=== PATIENT | male | born 1960 | race Caucasian/White ===

== ENCOUNTER 2017-10-23 01:02 | Emergency (ER) | END 2017-10-23 05:23 | disposition home or self-care (01) ==

== ENCOUNTER 2018-06-28 14:15 | Emergency (ER) | payer OTHER ==
[~2018-06-28] VITALS: Wt 78.0 kg
[~2018-06-28 14:15] MED LIST: CIPR500T4 PO; HYDR-3980 PO; TAMS-14 PO
[2018-06-28 14:22] VITALS: RESP 18
[2018-06-28] MEDS ORDERED: LIDOCAINE 1% (MDV) 20 ML INJ SC ONE ×2 (17:30→18:00)
[2018-06-28] MEDS ORDERED: DIPHTH/TET/ACEL PERTUSS (ADULT) 0.5 ML VIAL IM* ONE (17:30)
[2018-06-28] MEDS ORDERED: HYDROCODONE/APAP (5/325) TAB PO ONE (17:30)
[2018-06-28] MEDS ORDERED: CEPH-443 PO (18:36)
[2018-06-28] MEDS ORDERED: HYDR-4011 PO (18:36)
--- NOTE | 2018-06-28 18:41 | ERD ---
ER Documentation Chief Complaint Chief Complaint LEFT INDEX FINGER LAC HPI 58-year-old male sustained a laceration to the tip of his left index finger at home with a soft. He has no restricted range of motion weakness. Tetanus is not up-to-date. ROS All systems reviewed and are negative except as per history of present illness. Medications Home Meds Active Scripts Hydrocodone/Acetaminophen ([place] 5-325 Tablet) 1 Each Tablet, 1 TAB PO Q6H PRN for PAIN, #12 TAB Prov:NATASHA MARKS MD 06/28/18 Cephalexin* (Keflex*) 500 Mg Capsule, 500 MG PO QID for 7 Days, CAP Prov:NATASHA MARKS MD 06/28/18 Hydrocodone/Acetaminophen ([place] 10-325 Tablet) 1 Each Tablet, 1 TAB PO Q6H PRN for PAIN, #20 TAB Prov:HUGO SALGADO 10/23/17 Tamsulosin Hcl* (Flomax*) 0.4 Mg Cap.er.24h, 0.4 MG PO BID, #10 CAP Prov:HUGO SALGADO 10/23/17 Ciprofloxacin Hcl* (Ciprofloxacin Hcl*) 500 Mg Tablet, 500 MG PO BID for 5 Days, TAB Prov:HUGO SALGADO S. 10/23/17 Allergies Allergies: Coded Allergies: No Known Allergy (Unverified , 10/23/17) PMhx/Soc History of Surgery: Yes (knee, nose) Anesthesia Reaction: No Hx Alcohol Use: No Hx Substance Use: No Hx Tobacco Use: No Smoking Status: Never smoker FmHx Family History: No diabetes, No coronary disease, No other Physical Exam Vitals Vital Signs Date Temp Pulse Resp B/P (MAP) Pulse Ox O2 O2 Flow FiO2 Time Delivery Rate 06/28/18 98.7 78 18 121/71 99 14:22 (88) Physical Exam Const: No acute distress Head: Atraumatic Eyes: Normal Conjunctiva ENT: Normal External Ears, Nose and Mouth. Neck: Full range of motion. No meningismus. Resp: Clear to auscultation bilaterally Cardio: Regular rate and rhythm, no murmurs Abd: Soft, non tender, non distended. Normal bowel sounds Skin: No petechiae or rashes Back: No midline or flank tenderness Ext: No cyanosis, or edema. Partial amputation of the pad of the left index finger. No exposed bone. No deficits of the MCP, PIP or DIP joint. Neur: Awake and alert Psych: Normal Mood and Affect Results 24 hrs Current Medications Medications Dose Sig/Sarah Start Time Status Last (Trade) Ordered Route PRN Stop Time Admin Dose Reason Admin Lidocaine 20 ml ONCE ONCE 06/28/18 DC (Xylocaine SC 17:30 06/28/18 1% (Mdv) 20 17:31 ml) Diphtheria/ 0.5 ml ONCE ONCE 06/28/18 DC Tetanus/Acell IM* 17:30 06/28/18 Pertussis 17:31 (Adacel) 1 tab ONCE ONCE 06/28/18 DC Acetaminophen PO 17:30 06/28/18 / 17:31 Hydrocodone Bitart ([place] (5/325)) Lidocaine 20 ml ONCE ONCE 06/28/18 DC (Xylocaine SC 18:00 06/28/18 1% (Mdv) 20 18:01 ml) Procedures/MDM X-ray left index finger 2V Interpreted by me: Bones: No fracture Joints: No dislocation Foreign body: None Impression-soft tissue defect of the left index finger pad without identified fracture dislocation. Patient was given a tetanus booster Procedure note-left index finger was prepped with Betadine. 2 cc lidocaine was used to perform a digital block. The defect of the pad was loosely reapproximated with 3 4-0 nylon sutures. Patient tolerated procedure well and the wound was dressed with Xeroform. Index finger metal splint was used for protection. Patient is neurovascular intact after splint. Has a amputation of the tip of his pad of his left index finger that it did not without identified fracture dislocation. He will be discharged home with recommendations for 2-day wound check, 10 days suture removal, orthopedic evaluation for monitoring of wound healing. Patient has no signs of fracture, dislocation, ischemia, deficits, infection. Discharged home with a short course of [place], Keflex, primary care follow-up and return precautions. Should return for redness, fevers, new worsening symptoms otherwise with primary care and orthopedist as directed. Departure Diagnosis: Primary Impression: Finger injury Encounter type: initial encounter Laterality: left Qualified Codes: S69.92XA - Unspecified injury of left wrist, hand and finger(s), initial encounter Additional Impression: Laceration Condition: Stable Patient Instructions: Finger Tip Amputation, Open Treatment, Laceration, Extrem (Suture, Staple, Or Tape) Referrals: ALFRED MCCULLOUGH MD Additional Instructions: Wound check in 2 days and suture removal approximately 10 days. Recommend orthopedist for further evaluation and treatment for poor wound healing. Okay to take Tylenol every 4 hours as well for pain. NATASHA MARKS MD Jun 28, 2018 18:41
[2018-06-28 19:00] VITALS: BP 138/77; PULSE 67
== END 2018-06-28 19:01 | disposition home or self-care (01) ==
LOC: FTE 14:15
DX: S61.211A Laceration without foreign body of left index finger without damage to nail, initial encounter (principal); X58.XXXA Exposure to other specified factors, initial encounter; Y92.9 Unspecified place or not applicable; Z23 Encounter for immunization
CPT/HCPCS: 73140; 90471; 90715

== ENCOUNTER 2018-07-01 07:26 | Emergency (ER) | payer OTHER ==
[~2018-07-01] VITALS: Ht 167.6 cm; Wt 73.8 kg
[~2018-07-01 07:26] MED LIST changes: +CEPH-443 PO; +HYDR-4011 PO
[2018-07-01 07:31] VITALS: BP 126/72; PULSE 81; RESP 20; Ht 167.6 cm; Wt 73.8 kg
--- NOTE | 2018-07-01 08:53 | ERD ---
ER Documentation Chief Complaint Chief Complaint Patient here for a wound recheck HPI 58-year-old male patient with no significant past medical history states that he is right-handed, presents to the ED for a wound check for his left index finger. Patient reports that he was cutting something with a saw, accidentally a part of his left index finger about 3 days ago. Denies any fever, chills, nausea, vomiting, loss sensation, loss of range of motion. She reports that he is been taking his antibiotics consistently. ROS All systems reviewed and are negative except as per history of present illness. Medications Home Meds Active Scripts Hydrocodone/Acetaminophen ([place] 5-325 Tablet) 1 Each Tablet, 1 TAB PO Q6H PRN for PAIN, #12 TAB Prov:NATASHA MARKS MD 06/28/18 Cephalexin* (Keflex*) 500 Mg Capsule, 500 MG PO QID for 7 Days, CAP Prov:NATASHA MARKS MD 06/28/18 Hydrocodone/Acetaminophen ([place] 10-325 Tablet) 1 Each Tablet, 1 TAB PO Q6H PRN for PAIN, #20 TAB Prov:HUGO SALGADO. 10/23/17 Tamsulosin Hcl* (Flomax*) 0.4 Mg Cap.er.24h, 0.4 MG PO BID, #10 CAP Prov:HUGO SALGADO 10/23/17 Ciprofloxacin Hcl* (Ciprofloxacin Hcl*) 500 Mg Tablet, 500 MG PO BID for 5 Days, TAB Prov:HUGO SALGADO 10/23/17 Allergies Allergies: Coded Allergies: No Known Allergy (Unverified , 10/23/17) PMhx/Soc History of Surgery: Yes (knee, nose) Anesthesia Reaction: No Hx Alcohol Use: No Hx Substance Use: No Hx Tobacco Use: No Smoking Status: Never smoker FmHx Family History: No diabetes, No coronary disease Physical Exam Vitals Vital Signs Date Temp Pulse Resp B/P (MAP) Pulse Ox O2 O2 Flow FiO2 Time Delivery Rate 07/01/18 98.3 81 20 126/72 98 07:31 (90) Physical Exam Const: Vgo-[id number]-ghbuotcoj, well-nourished. In no acute distress. Head: Atraumatic, normocephalic Eyes: Normal Conjunctiva without injection ENT: Normal external ear, nose and mouth. Neck: Full range of motion. No meningismus. Resp: Clear to auscultation bilaterally. No wheezing, rhonchi, rales, or crackles. No accessory muscle use. No retractions. Cardio: Regular rate and rhythm, no murmurs Skin: No petechiae or rashes Back: No midline tenderness. No CVA tenderness. Ext: No cyanosis, or edema. Cap refill less than 2 seconds. Distal pulses intact bilaterally. Partially vulsed left index finger with 3 sutures noted without any signs of dehiscence. No visualization of tendon, or bony prominences, foreign bodies. No purulent discharge, surrounding erythema, edema. Full range of motion of the DIP, PIP, MCP joints bilaterally. Neur: Awake and alert. Normal gait and coordination. Muscle strength 5/5. Sensation intact bilaterally. Psych: Normal Mood and Affect Procedures/MDM 58-year-old male patient with no significant past medical history presents to ED complaining for a left index finger wound check. Patient is afebrile and nontoxic-appearing. No signs of dehiscence, erythema, edema, purulent discharge. Low suspicion for fractures, dislocations, cellulitis, deep space infection, sepsis, or other emergent conditions. New clean dressing was reapplied. Neurovascularly intact. Diagnosis: Encounter for wound recheck Follow up with primary care physician in 1-2 days. Instructed patient to return to the ED sooner for any worsening symptoms. Patient's questions were answered. Patient is hemodynamically stable. Patient understood and agreed with discharge plan. Patient discharged stable. Disclaimer: Inadvertent spelling and grammatical errors are likely due to EHR/dictation software use and do not reflect on the overall quality of patient care. Also, please note that the electronic time recorded on this note does not necessarily reflect the actual time of the patient encounter. Departure Diagnosis: Primary Impression: Encounter for wound re-check Condition: Stable Patient Instructions: Wound Care, Wound Check, Lac F/U (No Infection) Referrals: COMM[facility] CL[facility] YOU HAVE RECEIVED A MEDICAL SCREENING EXAM AND THE RESULTS INDICATE THAT YOU DO NOT HAVE A CONDITION THAT REQUIRES URGENT TREATMENT IN THE EMERGENCY DEPARTMENT. FURTHER EVALUATION AND TREATMENT OF YOUR CONDITION CAN WAIT UNTIL YOU ARE SEEN IN YOUR DOCTORS OFFICE WITHIN THE NEXT 1-2 DAYS. IT IS YOUR RESPONSIBILITY TO MAKE AN APPOINTMENT FOR FOLOW-UP CARE. IF YOU HAVE A PRIMARY DOCTOR --you should call your primary doctor and schedule an appointment IF YOU DO NOT HAVE A PRIMARY DOCTOR YOU CAN CALL OUR PHYSICIAN REFERRAL HOTLINE AT IF YOU CAN NOT AFFORD TO SEE A PHYSICIAN YOU CAN CHOSE FROM THE FOLLOWING [facility] [address] [facility] [address] [facility] [address] [facility] [address] [facility] [address] [facility]. [facility] [address] [facility]. [facility] YOU HAVE RECEIVED A MEDICAL SCREENING EXAM AND THE RESULTS INDICATE THAT YOU DO NOT HAVE A CONDITION THAT REQUIRES URGENT TREATMENT IN THE EMERGENCY DEPARTMENT. FURTHER EVALUATION AND TREATMENT OF YOUR CONDITION CAN WAIT UNTIL YOU ARE SEEN IN YOUR DOCTORS OFFICE WITHIN THE NEXT 1-2 DAYS. IT IS YOUR RESPONSIBILITY TO MAKE AN APPOINTMENT FOR FOLOW-UP CARE. IF YOU HAVE A PRIMARY DOCTOR --you should call your primary doctor and schedule and appointment IF YOU DO NOT HAVE A PRIMARY DOCTOR YOU CAN CALL OUR PHYSICIAN REFERRAL HOTLINE AT . IF YOU CAN NOT AFFORD TO SEE A PHYSICIAN YOU CAN CHOSE FROM THE FOLLOWING [facility] INSTITUTIONS: [facility] [address] [place] [address] [facility] [address] [place] [address] [facility] [address] [place] [address] [facility] URGENT CARE/SPECIALTIES Additional Instructions: Llame al doctor MAJAMIE y darrel jamie NGOZI PARA DENTRO DE 2-3 ARROYO.Dgale a la secretaria que nosotros le instruimos hacer esta ngozi.Avise o llame si michelle condicin se empeora antes de la ngozi. Regresa aqui si peor o no mejor. SUTURE REMOVAL:CONSULTE A MICHELLE MDICO PARA SACAR MICHELLE PUNTOS.PARA LA YONG 5-6 reed.EN OTRO LUGAR 7-10 reed. FRANKLYN DURAN PA-C Jul 01, 2018 08:53
== END 2018-07-01 08:49 | disposition home or self-care (01) ==
LOC: FTE 07:26
DX: Z48.01 Encounter for change or removal of surgical wound dressing (principal)
CPT/HCPCS: 99281